=== PATIENT | female | born 1995 | race Caucasian/White ===

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

== ENCOUNTER 2017-01-03 07:58 | Emergency (ER) | payer OTHER ==
[~2017-01-03] VITALS: Ht 160 cm; Wt 95.7 kg
[~2017-01-03 07:58] MED LIST changes: +AMOX1TAB42 PO
[2017-01-03 08:06] VITALS: TEMP 36.7; Ht 160 cm; Wt 95.7 kg
[2017-01-03] MEDS ORDERED: AZITTAB PO (08:13)
[2017-01-03] MEDS ORDERED: PREDPOW63 PO (08:13)
[2017-01-03] MEDS ORDERED: VNTHFA/IN INH (08:13)
[2017-01-03] MEDS ORDERED: BUPR-79 PO (08:13)
[2017-01-03 08:43] VITALS: O2SAT 98
--- NOTE | 2017-01-03 08:46 | EMERGENCY ROOM VISIT NOTE ---
History Report prepared by [place]: Holley Proctor Under the Supervision of: Dr. De Gibbons M.D. First contact with patient: 08:15 Chief Complaint: COUGH Stated Complaint: WALKING PNEUMONIA, PASSING OUT, VOMITING, COUGH Nursing Triage Summary: Walking pneumonia, cough. History of Present Illness The patient is a 21 year old female who presents to the Emergency Room with complaints of a persistent cough that started 5 days ago. The patient was evaluated by a doctor, who she states is not her normal doctor, and was diagnosed with walking pneumonia. She was started on prednisone and azithromycin. She is also using her albuterol inhaler as needed at home which she has for seasonal asthma. The patient states that she is on her 5th day of prednisone and azithromycin, which is supposed to be her last day, but she is not feeling any better. The patient states that she did not have a chest x-ray done. The patient denies any fevers today, but states that she had one a couple days ago. She adds that she coughed hard this morning to the point of vomiting. She then became lightheaded. She states that she sat up to get a drink of water and experienced syncope. The patient expressed that there was a chance that she was so she would like the test prior to having the x-ray done. She denies any urinary symptoms. Source of History: patient Onset: 5 days ago Position: chest Quality: other (cough) Timing: other (persistent) Associated Symptoms: + LOC, + fevers, + vomiting, No urinary symptoms Note: lightheadedness after coughing Review of Systems All systems have been listed, reviewed, and are negative other than those previously mentioned. Please see Additional Medical History Sheet. Past Medical & Surgical Medical Problems: (1) Anxiety (2) Depression Family History Diabetes mellitus FH: heart disease FHx: cancer Hypertension Social History Smoking Status: Never Smoker Alcohol Use: none Drug Use: none Marital Status: single Occupation Status: student Current/Historical Medications Scheduled Albuterol Hfa (Ventolin Hfa), 2-4 PUFFS INH Q6H Azithromycin (Zithromax Z-Ajit), 1 PKT PO UD Bupropion (Wellbutrin Sr), 150 MG PO DAILY [Prednisone], 3 TAB PO DAILY Allergies Coded Allergies: Chocolate (Unverified Allergy, Unknown, THROAT SWELLS, 01/03/17) Pineapple (Unverified Allergy, Unknown, TONGUE SWELLS/ITCHY, 01/03/17) [place] (Unverified Allergy, Unknown, TONGUE SWELLING, 01/03/17) Physical Exam Vital Signs Date Time Temp Pulse Resp B/P (MAP) Pulse Ox O2 Delivery O2 Flow Rate FiO2 01/03/17 10:21 100 18 124/94 98 01/03/17 09:47 90 17 127/78 99 01/03/17 08:43 98 Room Air 01/03/17 08:14 Room Air 01/03/17 08:09 97 Room Air 01/03/17 08:06 36.7 103 17 122/82 98 Room Air Physical Exam GENERAL: Patient awake, alert, oriented x 3. Patient follows commands. Patient does not appear toxic. Patient is adequately hydrated and well- nourished. SKIN: No erythema, pallor, cyanosis or rash HEENT: Normal head, pupils equal, reactive to light and accommodation. Ears normal. Oral cavity and posterior pharynx appear normal. Neck: Without adenopathy, no neck vein distention. LUNGS: Clear to auscultation. No wheezes, no rales, no rhonchi. HEART: No murmurs. No gallops. No rubs ABDOMEN: Soft. Nontender. EXTREMITIES: Small superficial laceration to right upper right [place] with no signs of infection. NEUROLOGIC: Cranial nerves II-XII within normal limits. No gross motor sensory function deficits. Medical Decision & Procedures ER Provider Diagnostic Interpretation: Radiology results as stated below per my review and radiologist interpretation: TWO VIEW CHEST FINDINGS: PA and lateral chest radiographs are compared to study dated 10/28/2015. The cardiomediastinal silhouette is unremarkable. The lungs and pleural spaces are clear. There is no pneumothorax. The bony thorax appears intact. IMPRESSION: No active disease in the chest. Electronically signed by: Clayton Bateman M.D. 01/03/2017 9:19 AM Dictated Date/Time: 01/03/2017 9:18 AM Laboratory Results 01/03/17 08:40 Red Blood Count 4.76, Mean Corpuscular Volume 85.5, Mean Corpuscular Hemoglobin 30.5, Mean Corpuscular Hemoglobin Concent 35.6, Mean Platelet Volume 8.6, Neutrophils (%) (Auto) 48.7, Lymphocytes (%) (Auto) 41.7, Monocytes (%) (Auto) 8.2, Eosinophils (%) (Auto) 0.9, Basophils (%) (Auto) 0.3, Neutrophils # (Auto) 5.90, Lymphocytes # (Auto) 5.05, Monocytes # (Auto) 0.99, Eosinophils # (Auto) 0.11, Basophils # (Auto) 0.04 01/03/17 08:40 Test 01/03/17 08:20 01/03/17 08:40 Urine Test NEG (NEG) White Blood Count 12.12 K/uL (4.8-10.8) Red Blood Count 4.76 M/uL (4.2-5.4) Hemoglobin 14.5 g/dL (12.0-16.0) Hematocrit 40.7 % (37-47) Mean Corpuscular Volume 85.5 fL (80-100) Mean Corpuscular Hemoglobin 30.5 pg (25-34) Mean Corpuscular Hemoglobin Concent 35.6 g/dl (32-36) Platelet Count 343 K/uL (130-400) Mean Platelet Volume 8.6 fL (7.4-10.4) Neutrophils (%) (Auto) 48.7 % Lymphocytes (%) (Auto) 41.7 % Monocytes (%) (Auto) 8.2 % Eosinophils (%) (Auto) 0.9 % Basophils (%) (Auto) 0.3 % Neutrophils # (Auto) 5.90 K/uL (1.4-6.5) Lymphocytes # (Auto) 5.05 K/uL (1.2-3.4) Monocytes # (Auto) 0.99 K/uL (0.11-0.59) Eosinophils # (Auto) 0.11 K/uL (0-0.5) Basophils # (Auto) 0.04 K/uL (0-0.2) RDW Standard Deviation 41.8 fL (36.4-46.3) RDW Coefficient of Variation 13.3 % (11.5-14.5) Immature Granulocyte % (Auto) 0.2 % Immature Granulocyte # (Auto) 0.03 K/uL (0.00-0.02) Anion Gap 10.0 mmol/L (3-11) Est Creatinine Clear Calc Drug Dose 127.7 ml/min Estimated GFR () 127.7 Estimated GFR (Non- 110.2 BUN/Creatinine Ratio 13.7 (10-20) Calcium Level 9.1 mg/dl (8.5-10.1) Laboratory results as stated above per my review. ED Course 0816: Past medical records reviewed. The patient was evaluated in room A3. A complete history and physical examination was performed. 1008: Upon reevaluation, the patient appeared to have improvement of her symptoms. I discussed today's findings with her. She verbalized agreement of the treatment plan. She was discharged home. Medical Decision Nurses notes reviewed. Medical history sheet reviewed. Differential diagnosis includes but is not limited to: pneumonia, bronchitis, asthma. Medication Reconciliation: I attest that I have personally reviewed the patient' s current medication list. Blood pressure Screening: Patient was found to have normal blood pressure on screening and does not require follow up. The patient is here with coughing. Patient was recently treated with Zithromax. Patient almost passed out today due to the cough. Blood work and imaging were obtained. Please see above. The patient has no evidence of a pneumonia. I believe that her cough is secondary mobilization of some phlegm. The patient will use her inhaler more frequently. I do not believe she requires any further antibiotics at this time. Impression Primary Impression: Acute bronchitis Scribe Attestation The scribe's documentation has been prepared under my direction and personally reviewed by me in its entirety. I confirm that the note above accurately reflects all work, treatment, procedures, and medical decision making performed by me. Departure Information Dispostion Home / Self-Care Referrals Nagi Townsend M.D. (PCP) Forms HOME CARE DOCUMENTATION FORM, IMPORTANT VISIT INFORMATION Patient Instructions Bronchitis Acute, My [facility] Additional Instructions You may use your inhaler every 2-4 hours as needed for cough. Recheck with your family physician in one week if symptoms have not completely resolved. Problem Qualifiers Primary Impression: Acute bronchitis Bronchitis organism: unspecified organism Qualified Codes: J20.9 - Acute bronchitis, unspecified
[2017-01-03 09:06] LABS: HEMATOCRIT 40.7 % (37-47); MEAN CELL VOLUME 85.5 fL (80-100); MEAN CORPUSCULAR HEMOGLOBIN 30.5 pg (25-34); MEAN CORPUSCULAR HGB CONC 35.6 g/dl (32-36); MEAN PLATELET VOLUME 8.6 fL (7.4-10.4); PLATELET COUNT 343 K/uL (130-400); RED BLOOD COUNT 4.76 M/uL (4.2-5.4); WHITE BLOOD COUNT 12.12 K/uL (4.8-10.8)
[2017-01-03 09:17] LABS: BUN/CREATININE RATIO 13.7 (10-20); CALCIUM 9.1 mg/dl (8.5-10.1); CREATININE 0.78 mg/dl (0.60-1.20); POTASSIUM 3.4 mmol/L (3.5-5.1)
--- NOTE | 2017-01-03 09:20 | DIAGNOSTIC IMAGING REPORT ---
TWO VIEW CHEST CLINICAL HISTORY: Cough and fever. Vomiting. FINDINGS: PA and lateral chest radiographs are compared to study dated 10/28/2015. The cardiomediastinal silhouette is unremarkable. The lungs and pleural spaces are clear. There is no pneumothorax. The bony thorax appears intact. IMPRESSION: No active disease in the chest. Electronically signed by: Clayton Bateman M.D. 01/03/2017 9:19 AM Dictated Date/Time: 01/03/2017 9:18 AM
[2017-01-03 09:37] LABS: BASO % 0.3 %; BASO ABS # 0.04 K/uL (0-0.2); COMPLETE YES; EOS % 0.9 %; IG% 0.2 %; LYMPH % 41.7 %; LYMPH ABS # 5.05 K/uL (1.2-3.4); MONO % 8.2 %; NEUT % 48.7 %
[2017-01-03 10:21] VITALS: BP 124/94; PULSE 100; O2SAT 98
== END 2017-01-03 10:35 | disposition home or self-care (01) ==
LOC: C.EDB 08:00 → C.EDA 10:35
DX: J20.9 Acute bronchitis, unspecified (principal); R50.9 Fever, unspecified; R11.10 Vomiting, unspecified; R42 Dizziness and giddiness; F41.9 Anxiety disorder, unspecified; F32.9 Major depressive disorder, single episode, unspecified; Z79.899 Other long term (current) drug therapy; Z82.49 Family history of ischemic heart disease and other diseases of the circulatory system; Z83.3 Family history of diabetes mellitus

== ENCOUNTER 2017-03-24 17:26 | Emergency (ER) | payer OTHER ==
[~2017-03-24] VITALS: Ht 160 cm; Wt 98.1 kg
[~2017-03-24 17:26] MED LIST changes: -ACET-1256 PO; -AMOX1TAB42 PO; +AZITTAB PO; +BUPR-79 PO; +PREDPOW63 PO; +VNTHFA/IN INH
[2017-03-24 17:28] VITALS: TEMP 36.9; Ht 160 cm; Wt 98.1 kg
[2017-03-24] MEDS ORDERED: KETOROLAC TROMETHAMINE 30 MG/ML VIAL IV STA (17:57)
[2017-03-24] MEDS ORDERED: MoRPHine SULFATE 4 MG/ML 1 ML CARP\\VIAL IV PRN (18:00)
[2017-03-24] MEDS ORDERED: ONDANSETRON INJ 2 MG/ML 2 ML VIAL IV PRN (18:00)
[2017-03-24] MEDS ORDERED: SODIUM CHLORIDE 0.9% 1000ML 1,000 ML IV ONE ×2 (18:00)
--- NOTE | 2017-03-24 18:11 | EMERGENCY ROOM VISIT NOTE ---
History First contact with patient: 17:45 Chief Complaint: KIDNEY STONE Stated Complaint: KIDNEY STONES,BLOOD IN URINE,PAIN History of Present Illness The patient is a 21 year old female who presents to the Emergency Room with complaints of bilateral flank pain radiating into her lower abdomen for the last 4 days. The patient also complains of urinary frequency and dysuria. She saw her primary care physician 3 days ago. A urinalysis was performed. She was told that she did not have a urinary tract infection. She did have blood in her urine, which was concerning for a possible kidney stone. The patient has tried ibuprofen [id number] with no relief of her symptoms. She denies any ear or chills. She has had nausea with 1 episode of vomiting. She denies any history of kidney stones. Review of Systems 10 system review performed and negative unless noted in HPI or below Past Medical/Surgical History Medical Problems: (1) Anxiety (2) Depression Family History Diabetes mellitus FH: heart disease FHx: cancer Hypertension Social History Smoking Status: Never Smoker Alcohol Use: none Drug Use: none Marital Status: single Occupation Status: student Current/Historical Medications Scheduled Bupropion Hcl (Bupropion Hcl Xl), 150 MG PO DAILY Ciprofloxacin Hcl (Cipro), 500 MG PO BID Etonogestrel/Ethinyl Estradiol (Nuvaring), 1 EA VAGRING MONTHLY Phenazopyridine HCl (Pyridium), 200 MG PO TID Scheduled PRN Albuterol Hfa (Ventolin Hfa), 2 PUFFS INH Q6H PRN for SOB/Wheezing Ibuprofen Tab (Advil), 400 MG PO Q6 PRN for Headache or Pain Physical Exam Vital Signs Date Time Temp Pulse Resp B/P (MAP) Pulse Ox O2 Delivery O2 Flow Rate FiO2 03/24/17 19:58 91 15 123/78 98 03/24/17 17:28 36.9 109 20 142/87 97 Room Air Physical Exam VITALS: Vitals are noted on the nurse's note and reviewed by myself. Vital signs stable. GENERAL: 21-year-old female, in no acute distress, nondiaphoretic, well- developed well-nourished. SKIN: The skin was without rashes, erythema, edema, or bruising. HEAD: Normocephalic atraumatic. MOUTH: Mucous membranes slightly dry NECK: Supple without nuchal rigidity. . No JVD. HEART: Regular rate and rhythm without murmurs gallops or rubs. LUNGS: Clear to auscultation bilaterally without wheezes, rales or rhonchi. No accessory muscle use. ABDOMEN: Positive bowel sounds x 4.Soft, nontender, without organomegaly. No guarding or rebound tenderness. CVA tenderness on the left side noted. MUSCULOSKELETAL: No muscle atrophy, erythema, or edema noted. Strength 5/5 throughout. NEURO: Patient was alert and oriented to person place and time. Normal sensation to touch. No focal neurological deficits. Medical Decision & Procedures ER Provider Diagnostic Interpretation: ABD/PELVIS WITHOUT FOR STONE CT DOSE: 1427.07 mGy.cm HISTORY: Pain. Nausea. bilateral flank pain dyrsuria vomiting TECHNIQUE: Multiaxial CT images of the abdomen and pelvis were performed without the use of intravenous and oral contrast according to the standard department stone protocol. A dose lowering technique was utilized adhering to the principles of ALARA. COMPARISON STUDY: None. FINDINGS: The lung bases are clear. The unenhanced liver, gallbladder, spleen, pancreas, and adrenal glands are unremarkable. No renal stones or hydronephrosis. No bowel wall thickening or obstruction. The pelvic organs are unremarkable. No suspicious lytic or blastic osseous lesions. Normal appendix IMPRESSION: No renal stones or hydronephrosis. Normal study. Normal appendix. The above report was generated using voice recognition software. It may contain grammatical, syntax or spelling errors. Electronically signed by: Mark Nix M.D. 03/24/2017 7:10 PM Dictated Date/Time: 03/24/2017 7:08 PM The status of this report is Signed. Draft = Not yet reviewed or approved by Radiologist. Signed = Reviewed and approved by Radiologist. <AttendingPhy></AttendingPhy> <FamilyPhy>Nagi Townsend M.D.</FamilyPhy> < PrimaryPhy>Nagi Townsend M.D.</PrimaryPhy> <UnitNumber>[id number]</UnitNumber> < VisitNumber>[id number]</VisitNumber> <PatientName>MIKIE CHEN</ PatientName> <DateOfBirth>1995</DateOfBirth> <Location>[facility]</Location> < ServiceDate>03/24/17</ServiceDate> <MNE>ESINDI</MNE> <OrderingPhy>JohnLevonze Hansen PA-C</OrderingPhy> <OrderingPhyMNE Laboratory Results 03/24/17 18:20 Red Blood Count 4.69, Mean Corpuscular Volume 85.9, Mean Corpuscular Hemoglobin 30.7, Mean Corpuscular Hemoglobin Concent 35.7, Mean Platelet Volume 8.4, Neutrophils (%) (Auto) 62.9, Lymphocytes (%) (Auto) 28.5, Monocytes (%) (Auto) 7.1, Eosinophils (%) (Auto) 0.9, Basophils (%) (Auto) 0.3, Neutrophils # (Auto) 5.69, Lymphocytes # (Auto) 2.58, Monocytes # (Auto) 0.64, Eosinophils # (Auto) 0.08, Basophils # (Auto) 0.03 03/24/17 18:20 Test 03/24/17 17:40 03/24/17 18:20 Urine Color DK YELLOW Urine Appearance CLOUDY (CLEAR) Urine pH 6.0 (4.5-7.5) Urine Specific [place] 1.035 (1.000-1.030) Urine Protein 2+ (NEG) Urine Glucose (UA) NEG (NEG) Urine Ketones TRACE (NEG) Urine Occult Blood 3+ (NEG) Urine Nitrite NEG (NEG) Urine Bilirubin NEG (NEG) Urine Urobilinogen NEG (NEG) Urine Leukocyte Esterase SMALL (NEG) Urine WBC (Auto) 10-30 /hpf (0-5) Urine RBC (Auto) 10-30 /hpf (0-4) Urine Hyaline Casts (Auto) 1-5 /lpf (0-5) Urine Epithelial Cells (Auto) >30 /lpf (0-5) Urine Bacteria (Auto) 1+ (NEG) Urine Pathogenic Casts /lpf (0) Urine Mucus PRESENT (NONE PRSENT) Urine Yeast (Auto) (NONE PRSENT) Urine Test NEG (NEG) White Blood Count 9.05 K/uL (4.8-10.8) Red Blood Count 4.69 M/uL (4.2-5.4) Hemoglobin 14.4 g/dL (12.0-16.0) Hematocrit 40.3 % (37-47) Mean Corpuscular Volume 85.9 fL (80-100) Mean Corpuscular Hemoglobin 30.7 pg (25-34) Mean Corpuscular Hemoglobin Concent 35.7 g/dl (32-36) Platelet Count 350 K/uL (130-400) Mean Platelet Volume 8.4 fL (7.4-10.4) Neutrophils (%) (Auto) 62.9 % Lymphocytes (%) (Auto) 28.5 % Monocytes (%) (Auto) 7.1 % Eosinophils (%) (Auto) 0.9 % Basophils (%) (Auto) 0.3 % Neutrophils # (Auto) 5.69 K/uL (1.4-6.5) Lymphocytes # (Auto) 2.58 K/uL (1.2-3.4) Monocytes # (Auto) 0.64 K/uL (0.11-0.59) Eosinophils # (Auto) 0.08 K/uL (0-0.5) Basophils # (Auto) 0.03 K/uL (0-0.2) RDW Standard Deviation 40.0 fL (36.4-46.3) RDW Coefficient of Variation 12.8 % (11.5-14.5) Immature Granulocyte % (Auto) 0.3 % Immature Granulocyte # (Auto) 0.03 K/uL (0.00-0.02) Anion Gap 7.0 mmol/L (3-11) Est Creatinine Clear Calc Drug Dose 136.4 ml/min Estimated GFR () 136.1 Estimated GFR (Non- 117.4 BUN/Creatinine Ratio 11.1 (10-20) Calcium Level 8.9 mg/dl (8.5-10.1) Total Bilirubin 0.2 mg/dl (0.2-1) Aspartate Amino Transf (AST/SGOT) 14 U/L (15-37) Alanine Aminotransferase (ALT/SGPT) 28 U/L (12-78) Alkaline Phosphatase 106 U/L (45-117) Total Protein 7.3 gm/dl (6.4-8.2) Albumin 3.4 gm/dl (3.4-5.0) Globulin 3.9 gm/dl (2.5-4.0) Albumin/Globulin Ratio 0.9 (0.9-2) Lipase 110 U/L (73-393) Medications Administered Medications (Trade) Dose Ordered Sig/Tamera Route Start Time Stop Time Status Last Admin Dose Admin Sodium Chloride 1,000 ml @ 999 mls/hr Q1H1M ONCE IV 03/24/17 18:00 03/24/17 19:00 DC 03/24/17 18:40 999 MLS/HR Sodium Chloride 1,000 ml @ 999 mls/hr Q1H1M ONCE IV 03/24/17 18:00 03/24/17 19:00 DC 03/24/17 18:40 999 MLS/HR Ketorolac Tromethamine (Toradol Inj) 30 mg NOW STAT IV 03/24/17 17:57 03/24/17 17:59 DC 03/24/17 18:42 30 MG Morphine Sulfate (MoRPHine SULFATE INJ) 4 mg Q1H PRN IV 03/24/17 18:00 03/24/17 20:25 DC 03/24/17 18:42 4 MG Ondansetron HCl (Zofran Inj) 4 mg Q2H PRN IV 03/24/17 18:00 03/24/17 20:25 DC 03/24/17 18:41 4 MG Ciprofloxacin (Cipro Tab) 500 mg NOW STAT PO 03/24/17 19:28 03/24/17 19:29 DC 03/24/17 19:50 500 MG Phenazopyridine HCl (Pyridium Tab) 200 mg NOW STAT PO 03/24/17 19:28 03/24/17 19:29 DC 03/24/17 19:50 200 MG ED Course Patient was seen and examined Vital signs including blood pressure were reviewed medications list was verified with patient Labs were obtained, and a saline lock was established The patient was given morphine 4 mg IV and Toradol 30 mg IV. She was hydrated with 1 L of normal saline, given Zofran 4 mg IV Imaging was performed and reviewed Upon reevaluation, the patient was feeling much better. We discussed the results of her workup. She was given 1 dose of Cipro 500 mg po and pyridium 200 mg po I reviewed discharge instructions the patient. They voiced understanding and had no further questions. Medical Decision Differential diagnosis: Ureteral stone, pyelonephritis, interstitial cystitis This patient is a 21-year-old female that presented to the emergency department with flank pain, dysuria and urinary frequency. There is concern for possible kidney stone given her UA that was done earlier this week at her primary care physician's office. She was told that she did not have a UTI. Today, her urinalysis is consistent with blood and 10-30 wbc's. There is no leukocytosis. She is afebrile. CT scan was performed.No signs of pyelonephritis or kidney stones were noted. The patient had good symptomatically from the emergency department. She was started on a course of Cipro and her urine was sent for culture. She was given Pyridium for urinary discomfort. She was instructed to follow-up with her PCP within the next few days for follow-up, and agreed to return here for any new or worsening symptoms. This chart was completed in part utilizing [employer] Voice Recognition software. Attempts were made to minimize the grammatical errors, random word insertions, pronoun errors and incomplete sentences. Any formal questions or concerns about the content, text or information contained within the body of this dictation should be directly addressed to the provider for clarification.+ Medication Reconcilliation Current Medication List: was personally reviewed by me Blood Pressure Screening Patient's blood pressure: Normal blood pressure Impression Primary Impression: UTI (urinary tract infection) Departure Information Dispostion Home / Self-Care Condition GOOD Prescriptions Phenazopyridine HCl (Pyridium) 200 Mg Tab 200 MG PO TID for Pain, #9 TAB Prov: Johanna Lopez PA-C 03/24/17 Ciprofloxacin Hcl (CIPRO) 500 Mg Tab 500 MG PO BID for 7 Days, #14 TAB Prov: Johanna Lopez PA-C 03/24/17 Referrals Nagi Townsend M.D. (PCP) Patient Instructions [facility] Additional Instructions You were evaluated in the emergency department for possible kidney stone. A CAT scan was performed. No kidney stones were seen. It does appear that you have a urinary tract infection. Please take the entire course of antibiotics You may take Pyridium 1 pill every 8 hours as needed for urinary discomfort Continue ibuprofen 400-600 mg every 8 hours as needed for pain Please follow-up with your primary care physician in the next 3-5 days for a recheck Please return to the emergency department with any new or worsening symptoms
[2017-03-24 18:30] LABS: URINE APPEARANCE CLOUDY (CLEAR); URINE BILIRUBIN NEG (NEG); URINE EPITHELIAL CELL AUTO >30 /lpf (0-5); URINE NITRITE NEG (NEG); URINE SPECIFIC GRAVITY 1.035 (1.000-1.030); UROBILINOGEN NEG (NEG)
[2017-03-24 18:36] LABS: BASO % 0.3 %; BASO ABS # 0.03 K/uL (0-0.2); COMPLETE YES; EOS % 0.9 %; HEMATOCRIT 40.3 % (37-47); IG% 0.3 %; LYMPH % 28.5 %; LYMPH ABS # 2.58 K/uL (1.2-3.4); MEAN CELL VOLUME 85.9 fL (80-100); MEAN CORPUSCULAR HEMOGLOBIN 30.7 pg (25-34); MEAN CORPUSCULAR HGB CONC 35.7 g/dl (32-36); MEAN PLATELET VOLUME 8.4 fL (7.4-10.4); MONO % 7.1 %; NEUT % 62.9 %; PLATELET COUNT 350 K/uL (130-400); RED BLOOD COUNT 4.69 M/uL (4.2-5.4); WHITE BLOOD COUNT 9.05 K/uL (4.8-10.8)
[2017-03-24 18:37] LABS: MANUAL MICROSCOPIC REQUIRED? NO; REVIEW REQ? YES; URINE COLOR DK YELLOW
[2017-03-24 18:44] LABS: URINE MUCUS PRESENT (NONE PRSENT)
[2017-03-24 18:54] LABS: BUN/CREATININE RATIO 11.1 (10-20); CALCIUM 8.9 mg/dl (8.5-10.1); CREATININE 0.74 mg/dl (0.60-1.20); POTASSIUM 3.8 mmol/L (3.5-5.1)
[2017-03-24 18:57] LABS: ALB/GLOB RATIO 0.9 (0.9-2)
--- NOTE | 2017-03-24 19:12 | DIAGNOSTIC IMAGING REPORT ---
ABD/PELVIS WITHOUT FOR STONE CT DOSE: 1427.07 mGy.cm HISTORY: Pain. Nausea. bilateral flank pain dyrsuria vomiting TECHNIQUE: Multiaxial CT images of the abdomen and pelvis were performed without the use of intravenous and oral contrast according to the standard department stone protocol. A dose lowering technique was utilized adhering to the principles of ALARA. COMPARISON STUDY: None. FINDINGS: The lung bases are clear. The unenhanced liver, gallbladder, spleen, pancreas, and adrenal glands are unremarkable. No renal stones or hydronephrosis. No bowel wall thickening or obstruction. The pelvic organs are unremarkable. No suspicious lytic or blastic osseous lesions. Normal appendix IMPRESSION: No renal stones or hydronephrosis. Normal study. Normal appendix. The above report was generated using voice recognition software. It may contain grammatical, syntax or spelling errors. Electronically signed by: Mark Nix M.D. 03/24/2017 7:10 PM Dictated Date/Time: 03/24/2017 7:08 PM
[2017-03-24] MEDS ORDERED: IBUP-103 PO (19:25)
[2017-03-24] MEDS ORDERED: ETONMIS VAGRING (19:25)
[2017-03-24] MEDS ORDERED: BUPR150T5 PO (19:25)
[2017-03-24] MEDS ORDERED: CIPROFLOXACIN 500 MG TAB PO STA (19:28)
[2017-03-24] MEDS ORDERED: PHENAZOPYRIDINE HCL 200 MG TAB PO STA (19:28)
[2017-03-24] MEDS ORDERED: PHENAZOPYRIDINE HOME PACK 200 MG VIAL PO ONE (19:30)
[2017-03-24] MEDS ORDERED: CIPR-255 PO (19:37)
[2017-03-24] MEDS ORDERED: PHEN-876 PO (19:37)
[2017-03-24 19:58] VITALS: BP 123/78; PULSE 91; O2SAT 98
== END 2017-03-24 20:00 | disposition home or self-care (01) ==
LOC: C.EDB 17:28 → C.EDA 20:00
DX: N39.0 Urinary tract infection, site not specified (principal); R11.2 Nausea with vomiting, unspecified; F32.9 Major depressive disorder, single episode, unspecified; F41.9 Anxiety disorder, unspecified; Z79.899 Other long term (current) drug therapy; Z82.49 Family history of ischemic heart disease and other diseases of the circulatory system; Z83.3 Family history of diabetes mellitus

== ENCOUNTER 2017-03-27 16:35 | Emergency (ER) | payer OTHER ==
[~2017-03-27] VITALS: Ht 160 cm; Wt 99.0 kg
[~2017-03-27 16:35] MED LIST changes: -AZITTAB PO; -BUPR-79 PO; +BUPR150T5 PO; +CIPR-255 PO; +ETONMIS VAGRING; +IBUP-103 PO; +PHEN-876 PO; -PREDPOW63 PO
[2017-03-27 17:01] VITALS: TEMP 37.2; Ht 160 cm; Wt 99.0 kg
[2017-03-27] MEDS ORDERED: ONDANSETRON INJ 2 MG/ML 2 ML VIAL IV STA (18:01)
[2017-03-27] MEDS ORDERED: KETOROLAC TROMETHAMINE 30 MG/ML VIAL IV STA (18:01)
[2017-03-27] MEDS ORDERED: CIPR-255 PO (18:25)
--- NOTE | 2017-03-27 18:25 | EMERGENCY ROOM VISIT NOTE ---
History First contact with patient: 17:37 Chief Complaint: URINARY SYMPTOMS Stated Complaint: KIDNEY STONES?? Nursing Triage Summary: here patty with pain in the lower abdomen was a UTI with kidney infection. RN told her she could have kidney stone. continues to have pain and blood in urine and inablility to void. was given antibiotics and has been takeing them. Pain medication has only relieved the pain small amount. History of Present Illness The patient is a 21 year old female who presents to the Emergency Room with complaints of ongoing back pain since her visit to the ED on 03/24/17. She originally was seen after suffering from bilateral back pain and dysuria. Originally there was assumption that she was suffering from a kidney stone as the UA was normal except for some blood. She then went to the ED when she had ongoing pain and UA was repeated and suspicious for a UTI. She was started on Cipro and d/c home with a seven day course. A Ct was done during that admission and no renal stone was noted. On evaluation of the previous UA it was reflective of a UTI however no urine culture was completed. She has one more day of medications and has been compliant. The back pain "comes in waves" and originates in the lower back and can radiate to bilat flanks. It is not associated with anything in particular. No trauma noted. It is sharp in characteristics. She notes that she has ongoing dysuria with onset of urination which did not improve at all with Pyridium. She denies any change in bowel habits ( history of chronic constipation), numbness/ tingling in limbs or weakness. She also denies any fever or rash. Review of Systems A 10 point review of systems was completed and was negative aside from above Past Medical/Surgical History Medical Problems: (1) Anxiety (2) Depression Family History Diabetes mellitus FH: heart disease FHx: cancer Hypertension Social History Smoking Status: Never Smoker Alcohol Use: none Drug Use: none Marital Status: single Occupation Status: student Current/Historical Medications Scheduled Amoxicillin (Amoxil), 1 CAP PO BID Bupropion Hcl (Bupropion Hcl Xl), 150 MG PO DAILY Ciprofloxacin Hcl (Cipro), 500 MG PO BID Etonogestrel/Ethinyl Estradiol (Nuvaring), 1 EA VAGRING MONTHLY Phenazopyridine HCl (Pyridium), 200 MG PO TID Scheduled PRN Albuterol Hfa (Ventolin Hfa), 2 PUFFS INH Q6H PRN for SOB/Wheezing Ibuprofen Tab (Advil), 400 MG PO Q6 PRN for Headache or Pain Physical Exam Vital Signs Date Time Temp Pulse Resp B/P (MAP) Pulse Ox O2 Delivery O2 Flow Rate FiO2 03/27/17 20:13 109 18 111/77 93 03/27/17 18:35 102 16 121/84 95 Room Air 03/27/17 17:01 37.2 133 20 134/85 93 Room Air Physical Exam General: ambulatory, not in acute distress, obese Skin: no rashes noted, no suspicious lesions, no areas of inflammations/ lacerations/ erythema noted CVS: S1/ S2 noted, RRR, no rubs/ murmurs noted, no cyanosis RVS: Clear throughout bilaterally, not in acute respiratory distress, no wheezing/ rales/ crackles noted ENT: no erythema/ injection/ ulcerations noted in the pharynx, no lymphadenopathy Neck: inspection WNL, full ROM of neck, no bruits noted ABD: BSx4, no pain/ tenderness on palpation, no organomegaly, negative murphys, psoas, Rovsing, CVA tenderness MSK: inspection of all limbs WNL, motor and sensation intact in all limbs, no swelling/ pain on palpation of joints, no spinal tenderness, no paraspinal tenderness NVS: PERRL, EOMI, sensation intact in all extremities Lymph: No lymphadenopathy palpable Medical Decision & Procedures ER Provider Diagnostic Interpretation: (RENAL)RETROPERITON COMP HISTORY: Flank pain back pain, assess for hydronephr COMPARISON: None. FINDINGS: Right kidney: Maximum linear dimension 11.2 cm. No evidence for hydronephrosis. Normal corticomedullary differentiation and cortical thickness. Left kidney: Maximum linear dimension 11.5 cm. No evidence for hydronephrosis. Normal corticomedullary differentiation and cortical thickness. Bladder: No bladder wall thickening. The bilateral ureteral jets were identified. IMPRESSION: Normal renal ultrasound. CHEST ONE VIEW PORTABLE CLINICAL HISTORY: tachycardia COMPARISON STUDY: 01/03/2017 FINDINGS: The cardiac and mediastinal contours are normal. There is no evidence of focal pulmonary consolidation. There is no evidence of failure. No pleural effusions are visualized.[ IMPRESSION: No active disease in the chest. KUB CLINICAL HISTORY: Lower abdominal and back pain. History of urinary tract infection. COMPARISON STUDY: CT scan dated 03/24/2017 FINDINGS: There is no pathologic bowel dilatation. There are no calcification suspicious for renal calculi. There are 2 right pelvic basin calcifications which are felt to represent phleboliths. IMPRESSION: 1. No evidence of pathologic bowel dilatation 2. No urinary tract calculi identified Laboratory Results 03/27/17 18:06 Red Blood Count 4.94, Mean Corpuscular Volume 87.2, Mean Corpuscular Hemoglobin 29.8, Mean Corpuscular Hemoglobin Concent 34.1, Mean Platelet Volume 8.5, Neutrophils (%) (Auto) 67.3, Lymphocytes (%) (Auto) 23.3, Monocytes (%) (Auto) 7.8, Eosinophils (%) (Auto) 1.0, Basophils (%) (Auto) 0.2, Neutrophils # (Auto) 7.28, Lymphocytes # (Auto) 2.52, Monocytes # (Auto) 0.84, Eosinophils # (Auto) 0.11, Basophils # (Auto) 0.02 03/27/17 18:06 Test 03/27/17 17:50 03/27/17 18:06 Urine Color ORANGE Urine Appearance CLEAR (CLEAR) Urine pH (4.5-7.5) Urine Specific [place] 1.022 (1.000-1.030) Urine Protein NEG (NEG) Urine Glucose (UA) (NEG) Urine Ketones (NEG) Urine Occult Blood (NEG) Urine Nitrite (NEG) Urine Bilirubin (NEG) Urine Urobilinogen (NEG) Urine Leukocyte Esterase (NEG) Urine RBC 0-4 /hpf (0-4) Urine WBC 1-5 /hpf (0-5) Urine Epithelial Cells 20-30 /lpf (0-5) Urine Bacteria NEG (NEG) Urine Test NEG (NEG) White Blood Count 10.81 K/uL (4.8-10.8) Red Blood Count 4.94 M/uL (4.2-5.4) Hemoglobin 14.7 g/dL (12.0-16.0) Hematocrit 43.1 % (37-47) Mean Corpuscular Volume 87.2 fL (80-100) Mean Corpuscular Hemoglobin 29.8 pg (25-34) Mean Corpuscular Hemoglobin Concent 34.1 g/dl (32-36) Platelet Count 389 K/uL (130-400) Mean Platelet Volume 8.5 fL (7.4-10.4) Neutrophils (%) (Auto) 67.3 % Lymphocytes (%) (Auto) 23.3 % Monocytes (%) (Auto) 7.8 % Eosinophils (%) (Auto) 1.0 % Basophils (%) (Auto) 0.2 % Neutrophils # (Auto) 7.28 K/uL (1.4-6.5) Lymphocytes # (Auto) 2.52 K/uL (1.2-3.4) Monocytes # (Auto) 0.84 K/uL (0.11-0.59) Eosinophils # (Auto) 0.11 K/uL (0-0.5) Basophils # (Auto) 0.02 K/uL (0-0.2) RDW Standard Deviation 40.9 fL (36.4-46.3) RDW Coefficient of Variation 12.7 % (11.5-14.5) Immature Granulocyte % (Auto) 0.4 % Immature Granulocyte # (Auto) 0.04 K/uL (0.00-0.02) Anion Gap 9.0 mmol/L (3-11) Est Creatinine Clear Calc Drug Dose 120.8 ml/min Estimated GFR () 116.8 Estimated GFR (Non- 100.8 BUN/Creatinine Ratio 11.5 (10-20) Lactic Acid Level 1.3 mmol/L (0.4-2.0) Calcium Level 9.1 mg/dl (8.5-10.1) Total Bilirubin 0.3 mg/dl (0.2-1) Aspartate Amino Transf (AST/SGOT) 16 U/L (15-37) Alanine Aminotransferase (ALT/SGPT) 23 U/L (12-78) Alkaline Phosphatase 107 U/L (45-117) Total Protein 7.6 gm/dl (6.4-8.2) Albumin 3.5 gm/dl (3.4-5.0) Globulin 4.1 gm/dl (2.5-4.0) Albumin/Globulin Ratio 0.9 (0.9-2) Lipase 113 U/L (73-393) Medications Administered Medications (Trade) Dose Ordered Sig/Tamera Route Start Time Stop Time Status Last Admin Dose Admin Sodium Chloride 1,000 ml @ 999 mls/hr Q1H1M ONCE IV 03/27/17 18:45 03/27/17 19:45 DC 03/27/17 18:36 999 MLS/HR Ondansetron HCl (Zofran Inj) 4 mg NOW STAT IV 03/27/17 18:01 03/27/17 18:02 DC 03/27/17 18:36 4 MG Ketorolac Tromethamine (Toradol Inj) 30 mg NOW STAT IV 03/27/17 18:01 03/27/17 18:02 DC 03/27/17 18:36 30 MG Amoxicillin (Amoxil Cap) 500 mg NOW ONCE PO 03/27/17 20:00 03/27/17 20:01 DC 03/27/17 20:04 500 MG ED Course 1740 : patient was evaluated by resident and appropriate w/u was ordered 1800: Toradol 30 mg IV, Zofran 4 mg IV 1830: Improvement in back pain and nausea after medication administration 1945: Discussed plan and discharge with the patient and the patient was agreeable to d/c 2000: Amoxil 500 mg PO x 1 administered and d/c with 7 day course ( rx sent to pharmacy) Medical Decision Differential diagnosis includes but is not limited to UTI, pyelonephritis, musculoskeletal strain, pancreatitis, cholecystitis and others were entertained This is a 21 yo f that has ongoing back pain after having a UA concerning for a UTI. As the patient has ongoing back pain there is question if there was a renal stone that was unidentified on the CT scan. A KUB was ordered to reassess for one as well as a USG of the kidneys to assess for hydronephrosis. These were both WNL however there was findings reflective of fecal retention. Her white count was slightly more elevated from the previous visit from approx 9 to 10 as well as a slight left shift. CMP was unremarkable with no JULIUS and no findings consistent of biliary abnormalities or pancreatitis. Her physical exam was not convincing of a musculoskeletal abnormality as there is no paraspinal or spinal tenderness. There is question if the ongoing symptoms are secondary to ongoing UTI complicated by constipation as she has ongoing dysuria not improved with pyridium. She has a non acute abdomen. Will change abx to amoxil x 7 days and treatment of constipation with miralax wean. We did discuss close follow up with PCP and patient was agreeable and discharged home. Blood Pressure Screening Patient's blood pressure: Normal blood pressure Blood pressure disposition: Elevated BP felt to be situational Impression Primary Impression: UTI (urinary tract infection) Additional Impression: Constipation Departure Information Dispostion Home / Self-Care Condition GOOD Prescriptions Amoxicillin (AMOXIL) 500 Mg Cap 1 CAP PO BID for 7 Days, #14 CAP Prov: Mayuri Haas MD 03/27/17 Referrals Nagi Townsend M.D. (PCP) Patient Instructions [facility] Problem Qualifiers Primary Impression: UTI (urinary tract infection) Urinary tract infection type: acute cystitis Hematuria presence: without hematuria Qualified Codes: N30.00 - Acute cystitis without hematuria Additional Impression: Constipation Constipation type: chronic idiopathic constipation Qualified Codes: K59.04 - Chronic idiopathic constipation
[2017-03-27] MEDS ORDERED: PHEN-876 PO (18:32)
[2017-03-27 18:34] LABS: MANUAL MICROSCOPIC REQUIRED? YES; REVIEW REQ? NO; URINE APPEARANCE CLEAR (CLEAR); URINE COLOR ORANGE
[2017-03-27 18:35] LABS: BASO % 0.2 %; BASO ABS # 0.02 K/uL (0-0.2); COMPLETE YES; HEMATOCRIT 43.1 % (37-47); IG% 0.4 %; LYMPH % 23.3 %; LYMPH ABS # 2.52 K/uL (1.2-3.4); MEAN CELL VOLUME 87.2 fL (80-100); MEAN CORPUSCULAR HEMOGLOBIN 29.8 pg (25-34); MEAN CORPUSCULAR HGB CONC 34.1 g/dl (32-36); MEAN PLATELET VOLUME 8.5 fL (7.4-10.4); MONO % 7.8 %; NEUT % 67.3 %; PLATELET COUNT 389 K/uL (130-400); RED BLOOD COUNT 4.94 M/uL (4.2-5.4); WHITE BLOOD COUNT 10.81 K/uL (4.8-10.8)
[2017-03-27 18:36] LABS: SULFASALICYLIC ACID NEG (NEG)
[2017-03-27 18:37] LABS: URINE SPECIFIC GRAVITY 1.022 (1.000-1.030)
[2017-03-27] MEDS ORDERED: SODIUM CHLORIDE 0.9% 1000ML 1,000 ML IV ONE (18:45)
[2017-03-27 18:47] LABS: URINE BACTERIA NEG (NEG); URINE RBC 0-4 /hpf (0-4); ZZUR CULT IF INDIC CLEAN CATCH NO
[2017-03-27 18:58] LABS: BUN/CREATININE RATIO 11.5 (10-20); CALCIUM 9.1 mg/dl (8.5-10.1); CREATININE 0.84 mg/dl (0.60-1.20); POTASSIUM 3.8 mmol/L (3.5-5.1)
[2017-03-27 19:01] LABS: ALB/GLOB RATIO 0.9 (0.9-2)
--- NOTE | 2017-03-27 19:12 | DIAGNOSTIC IMAGING REPORT ---
(RENAL)RETROPERITON COMP HISTORY: Flank pain back pain, assess for hydronephr COMPARISON: None. FINDINGS: Right kidney: Maximum linear dimension 11.2 cm. No evidence for hydronephrosis. Normal corticomedullary differentiation and cortical thickness. Left kidney: Maximum linear dimension 11.5 cm. No evidence for hydronephrosis. Normal corticomedullary differentiation and cortical thickness. Bladder: No bladder wall thickening. The bilateral ureteral jets were identified. IMPRESSION: Normal renal ultrasound. The above report was generated using voice recognition software. It may contain grammatical, syntax or spelling errors. Electronically signed by: Mark Nix M.D. 03/27/2017 7:10 PM Dictated Date/Time: 03/27/2017 7:10 PM
--- NOTE | 2017-03-27 19:21 | DIAGNOSTIC IMAGING REPORT ---
CHEST ONE VIEW PORTABLE CLINICAL HISTORY: tachycardia COMPARISON STUDY: 01/03/2017 FINDINGS: The cardiac and mediastinal contours are normal. There is no evidence of focal pulmonary consolidation. There is no evidence of failure. No pleural effusions are visualized.[ IMPRESSION: No active disease in the chest. Electronically signed by: Rajiv Ziegler M.D. 03/27/2017 7:20 PM Dictated Date/Time: 03/27/2017 7:20 PM
--- NOTE | 2017-03-27 19:23 | DIAGNOSTIC IMAGING REPORT ---
KUB CLINICAL HISTORY: Lower abdominal and back pain. History of urinary tract infection. COMPARISON STUDY: CT scan dated 03/24/2017 FINDINGS: There is no pathologic bowel dilatation. There are no calcification suspicious for renal calculi. There are 2 right pelvic basin calcifications which are felt to represent phleboliths. IMPRESSION: 1. No evidence of pathologic bowel dilatation 2. No urinary tract calculi identified Electronically signed by: Rajiv Ziegler M.D. 03/27/2017 7:21 PM Dictated Date/Time: 03/27/2017 7:20 PM
--- NOTE | 2017-03-27 19:38 | EMERGENCY ROOM VISIT NOTE ---
ED Visit Note First contact with patient: 17:37 Resident Physician Supervision Note: I interviewed and examined the patient. Discussed with Dr. Haas and agree with findings and plan as documented in the note. Documented By: Dustin Max Problem List Medical Problems: (1) Anxiety Status: Chronic (2) Depression Status: Chronic Current/Historical Medications Scheduled Bupropion Hcl (Bupropion Hcl Xl), 150 MG PO DAILY Ciprofloxacin Hcl (Cipro), 500 MG PO BID Etonogestrel/Ethinyl Estradiol (Nuvaring), 1 EA VAGRING MONTHLY Phenazopyridine HCl (Pyridium), 200 MG PO TID Scheduled PRN Albuterol Hfa (Ventolin Hfa), 2 PUFFS INH Q6H PRN for SOB/Wheezing Ibuprofen Tab (Advil), 400 MG PO Q6 PRN for Headache or Pain Allergies Coded Allergies: Chocolate (Unverified Allergy, Unknown, THROAT SWELLS, 01/03/17) Pineapple (Unverified Allergy, Unknown, TONGUE SWELLS/ITCHY, 01/03/17) [place] (Unverified Allergy, Unknown, TONGUE SWELLING, 01/03/17) Vital Signs Date Time Temp Pulse Resp B/P (MAP) Pulse Ox O2 Delivery O2 Flow Rate FiO2 03/27/17 18:35 102 16 121/84 95 Room Air 03/27/17 17:01 37.2 133 20 134/85 93 Room Air Laboratory Results 03/27/17 18:06 Red Blood Count 4.94, Mean Corpuscular Volume 87.2, Mean Corpuscular Hemoglobin 29.8, Mean Corpuscular Hemoglobin Concent 34.1, Mean Platelet Volume 8.5, Neutrophils (%) (Auto) 67.3, Lymphocytes (%) (Auto) 23.3, Monocytes (%) (Auto) 7.8, Eosinophils (%) (Auto) 1.0, Basophils (%) (Auto) 0.2, Neutrophils # (Auto) 7.28, Lymphocytes # (Auto) 2.52, Monocytes # (Auto) 0.84, Eosinophils # (Auto) 0.11, Basophils # (Auto) 0.02 03/27/17 18:06 Test 03/27/17 17:50 03/27/17 18:06 Urine Color ORANGE Urine Appearance CLEAR (CLEAR) Urine pH (4.5-7.5) Urine Specific [place] 1.022 (1.000-1.030) Urine Protein NEG (NEG) Urine Glucose (UA) (NEG) Urine Ketones (NEG) Urine Occult Blood (NEG) Urine Nitrite (NEG) Urine Bilirubin (NEG) Urine Urobilinogen (NEG) Urine Leukocyte Esterase (NEG) Urine RBC 0-4 /hpf (0-4) Urine WBC 1-5 /hpf (0-5) Urine Epithelial Cells 20-30 /lpf (0-5) Urine Bacteria NEG (NEG) Urine Test NEG (NEG) White Blood Count 10.81 K/uL (4.8-10.8) Red Blood Count 4.94 M/uL (4.2-5.4) Hemoglobin 14.7 g/dL (12.0-16.0) Hematocrit 43.1 % (37-47) Mean Corpuscular Volume 87.2 fL (80-100) Mean Corpuscular Hemoglobin 29.8 pg (25-34) Mean Corpuscular Hemoglobin Concent 34.1 g/dl (32-36) Platelet Count 389 K/uL (130-400) Mean Platelet Volume 8.5 fL (7.4-10.4) Neutrophils (%) (Auto) 67.3 % Lymphocytes (%) (Auto) 23.3 % Monocytes (%) (Auto) 7.8 % Eosinophils (%) (Auto) 1.0 % Basophils (%) (Auto) 0.2 % Neutrophils # (Auto) 7.28 K/uL (1.4-6.5) Lymphocytes # (Auto) 2.52 K/uL (1.2-3.4) Monocytes # (Auto) 0.84 K/uL (0.11-0.59) Eosinophils # (Auto) 0.11 K/uL (0-0.5) Basophils # (Auto) 0.02 K/uL (0-0.2) RDW Standard Deviation 40.9 fL (36.4-46.3) RDW Coefficient of Variation 12.7 % (11.5-14.5) Immature Granulocyte % (Auto) 0.4 % Immature Granulocyte # (Auto) 0.04 K/uL (0.00-0.02) Anion Gap 9.0 mmol/L (3-11) Est Creatinine Clear Calc Drug Dose 120.8 ml/min Estimated GFR () 116.8 Estimated GFR (Non- 100.8 BUN/Creatinine Ratio 11.5 (10-20) Lactic Acid Level 1.3 mmol/L (0.4-2.0) Calcium Level 9.1 mg/dl (8.5-10.1) Total Bilirubin 0.3 mg/dl (0.2-1) Aspartate Amino Transf (AST/SGOT) 16 U/L (15-37) Alanine Aminotransferase (ALT/SGPT) 23 U/L (12-78) Alkaline Phosphatase 107 U/L (45-117) Total Protein 7.6 gm/dl (6.4-8.2) Albumin 3.5 gm/dl (3.4-5.0) Globulin 4.1 gm/dl (2.5-4.0) Albumin/Globulin Ratio 0.9 (0.9-2) Lipase 113 U/L (73-393) Medications Administered Medications (Trade) Dose Ordered Sig/Tamera Route Start Time Stop Time Status Last Admin Dose Admin Sodium Chloride 1,000 ml @ 999 mls/hr Q1H1M ONCE IV 03/27/17 18:45 03/27/17 19:45 03/27/17 18:36 999 MLS/HR Ondansetron HCl (Zofran Inj) 4 mg NOW STAT IV 03/27/17 18:01 03/27/17 18:02 DC 03/27/17 18:36 4 MG Ketorolac Tromethamine (Toradol Inj) 30 mg NOW STAT IV 03/27/17 18:01 03/27/17 18:02 DC 03/27/17 18:36 30 MG Departure Information Referrals Nagi Townsend M.D. (PCP) Patient Instructions My [facility]
[2017-03-27] MEDS ORDERED: AMOXICILLIN 250 MG CAP PO ONE (20:00)
[2017-03-27] MEDS ORDERED: AMOX500C3 PO (20:00)
[2017-03-27 20:13] VITALS: BP 111/77; PULSE 109; O2SAT 93
== END 2017-03-27 20:13 | disposition home or self-care (01) ==
LOC: C.EDB 16:36 → C.EDC 20:13
DX: N30.00 Acute cystitis without hematuria (principal); K59.04 Chronic idiopathic constipation; F32.9 Major depressive disorder, single episode, unspecified; Z83.3 Family history of diabetes mellitus; Z82.49 Family history of ischemic heart disease and other diseases of the circulatory system; Z79.899 Other long term (current) drug therapy